=== PATIENT | male | born 1930 | race Caucasian/White ===

== ENCOUNTER 2017-11-30 10:07 | Emergency (ER) | payer OTHER, MEDICARE ==
[~2017-11-30] VITALS: Ht 182.9 cm; Wt 80.7 kg
[2017-11-30 10:07] VITALS: BP_SYST 136
--- NOTE | 2017-11-30 10:07 | NUR ---
BROUGHT BACK TO BED #7 AND TRIAGED. REPORT GIVEN TO KELLY
--- NOTE | 2017-11-30 10:34 | NUR ---
ER at bedside examining patient.
--- NOTE | 2017-11-30 10:37 | NUR ---
Pt presents to ER c/o flu like symptomsx 6 days. Pt states he has a productive cough, body aches, sore throat. Pt reports that his was admitted on saturday to [facility] for influenza. Pt denies N/V/D. Pt reports medical history of HTN, hyperlipidemia. Pt in no acute distress, AOX4, family at bedside.
[2017-11-30] MEDS ORDERED: ALBUTEROL SULFATE 0.083% 2.5 MG/3 ML VIAL.NEB INH ONE (12:00)
--- NOTE | 2017-11-30 12:00 | NUR ---
Respiratory at bedside for breathing tx. Pt tolerating well; will continue to monitor.
--- NOTE | 2017-11-30 12:17 | NUR ---
DR DESOUZA IN ROOM SPEAKING WITH PT AND PTS DAUGHTER.
[2017-11-30 12:20] VITALS: BP_SYST 128
--- NOTE | 2017-11-30 12:20 | NUR ---
Patient given written and verbal discharge instructions and verbalizes understanding. ER MD discussed with patient the results and treatment provided. Patient in stable condition. ID arm band removed. Rx of Augmentin and Promethazine with Codeine given. Patient educated on pain management and to follow up with PMD. Pain Scale 0/10. Opportunity for questions provided and answered.
== END 2017-11-30 12:20 | disposition home or self-care (01) ==
LOC: SED 10:07
DX: J40 Bronchitis, not specified as acute or chronic (principal)
CPT/HCPCS: 36415; 71010; 86710; 94640; 99285

== ENCOUNTER 2019-09-05 09:33 | Inpatient (IN) | payer OTHER, MEDICARE ==
[~2019-09-05] VITALS: Ht 182.9 cm; Wt 74.8 kg
[~2019-09-05 09:33] MED LIST: BENA20TA9 PO; DOXA4TAB2 PO; LEVO500T20 PO; METH4TAB3 PO; MONT10TA25 PO; PARO40TA80 PO; SIMV40TA2 PO
[2019-09-05 09:35] VITALS: BP_SYST 164
[2019-09-05 10:29] LABS: ANION GAP 10 (5-15); CALCIUM 8.7 mg/dL (8.4-11.0); CHLORIDE 100 mmol/L (98-107); CREATININE 1.05 mg/dL (0.55-1.30); GLUCOSE 104 mg/dL (70-99); SODIUM SERUM 134 mmol/L (136-145); UREA NITROGEN, BLOOD 19 mg/dL (8-21)
[2019-09-05 10:35] LABS: ALANINE AMINOTRANSFERASE 19 U/L (12-78); ALBUMIN 3.5 g/dL (3.4-4.8); ASPARTATE AMINOTRANSFERASE 16 U/L (10-37); TOTAL BILIRUBIN 0.5 mg/dL (0.0-1.0)
[2019-09-05] MEDS ORDERED: VIS25 PO (10:35)
[2019-09-05] MEDS ORDERED: TAMS-11 PO (10:35)
[2019-09-05] MEDS ORDERED: LOSA50TA3 PO (10:35)
[2019-09-05] MEDS ORDERED: PARO-63 PO (10:35)
[2019-09-05 10:37] LABS: BASOPHILS # (AUTO) 0.1 K/uL (0.0-0.2); EOSINOPHILS # (AUTO) 0.1 K/uL (0.0-0.4); EOSINOPHILS % (AUTO) 1.3 % (0.0-4.0); HEMOGLOBIN 14.1 g/dL (14.0-18.0); LYMPHOCYTES # (AUTO) 0.7 K/uL (1.0-5.5); LYMPHOCYTES % (AUTO) 10.1 % (20.5-51.5); MEAN CORPUSCULAR HEMOGLOBIN 33 pg (27-31); MEAN CORPUSCULAR HGB CONC 34 % (32-36); MEAN CORPUSCULAR VOLUME 96 fL (79.0-98.0); MONOCYTES # (AUTO) 0.7 K/uL (0.0-1.0); MONOCYTES % (AUTO) 9.3 % (1.7-9.3); NEUTROPHILS # (AUTO) 5.5 K/uL (1.8-7.7); NEUTROPHILS % (AUTO) 78.3 % (40.0-70.0); PLATELET COUNT (AUTO) 299 K/uL (130-430); RED BLOOD CELL COUNT(AUTO) 4.28 MIL/uL (4.2-6.2); RED CELL DISTRIBUTION WIDTH 14.3 % (9.0-15.0)
[2019-09-05 11:44] VITALS: BP_SYST 151
[2019-09-05] MEDS ORDERED: DOCU-144 PO (11:44)
[2019-09-05 14:25] LABS: FREE T4 (FREE THYROXINE) 1.1 ng/dl (0.8-1.5); THYROID STIMULATING HORMONE 1.84 uIu/mL (0.36-3.74)
[2019-09-05 16:00] VITALS: BP_SYST 145
[2019-09-05] MEDS ORDERED: HYDROcodone/ACETAMIN 5-325 MG TAB (NORCO/ VICODIN) PO PRN (17:15)
[2019-09-05] MEDS ORDERED: HYDROcodone/ACETAMIN 10-325 MG TAB PO PRN (17:15)
[2019-09-05] MEDS ORDERED: ONDANSETRON HCL 4 MG/2 ML VIAL IVP PRN (17:15)
[2019-09-05] MEDS ORDERED: ACETAMINOPHEN 325 MG TABLET PO PRN (17:15)
[2019-09-05] MEDS ORDERED: LORazepam 2 MG/ML VIAL IVP PRN (17:15)
[2019-09-05] MEDS: MONTELUKAST 10 MG TABLET PO SCH (17:33)
[2019-09-05 19:00] VITALS: BP_SYST 120
[2019-09-05 20:00] VITALS: BP_SYST 120
[2019-09-05] MEDS: DOCUSATE SODIUM 100 MG CAPSULE PO SCH (21:58)
[2019-09-05] MEDS ORDERED: NORMAL SALINE 5 ML DISP.SYRIN IVF SCH (22:00)
[2019-09-05] MEDS: NORMAL SALINE 5 ML DISP.SYRIN IVF SCH (22:00)
[2019-09-06 02:26] VITALS: BP_SYST 128
[2019-09-06] MEDS: NORMAL SALINE 5 ML DISP.SYRIN IVF SCH ×3 (06:02→20:29)
[2019-09-06 06:43] LABS: BASOPHILS # (AUTO) 0.1 K/uL (0.0-0.2); BASOPHILS % (AUTO) 1.2 % (0.0-2.0); EOSINOPHILS # (AUTO) 0.3 K/uL (0.0-0.4); EOSINOPHILS % (AUTO) 4.1 % (0.0-4.0); HEMATOCRIT 40.3 % (36-54); HEMOGLOBIN 13.7 g/dL (14.0-18.0); LYMPHOCYTES # (AUTO) 0.9 K/uL (1.0-5.5); MEAN CORPUSCULAR HEMOGLOBIN 33 pg (27-31); MEAN CORPUSCULAR HGB CONC 34 % (32-36); MEAN CORPUSCULAR VOLUME 96 fL (79.0-98.0); MONOCYTES # (AUTO) 0.7 K/uL (0.0-1.0); MONOCYTES % (AUTO) 11.6 % (1.7-9.3); NEUTROPHILS # (AUTO) 4.2 K/uL (1.8-7.7); NEUTROPHILS % (AUTO) 68.1 % (40.0-70.0); PLATELET COUNT (AUTO) 299 K/uL (130-430); RED BLOOD CELL COUNT(AUTO) 4.19 MIL/uL (4.2-6.2); RED CELL DISTRIBUTION WIDTH 13.9 % (9.0-15.0); WHITE BLOOD COUNT (AUTO) 6.2 K/uL (4.8-10.8)
[2019-09-06 07:23] LABS: ANION GAP 8 (5-15); CALCIUM 8.6 mg/dL (8.4-11.0); CHLORIDE 102 mmol/L (98-107); CREATININE 1.06 mg/dL (0.55-1.30); GLUCOSE 88 mg/dL (70-99); POTASSIUM 4.3 mmol/L (3.5-5.1); SODIUM SERUM 136 mmol/L (136-145); UREA NITROGEN, BLOOD 17 mg/dL (8-21)
[2019-09-06 07:41] VITALS: BP_SYST 159
[2019-09-06] MEDS: TAMSULOSIN HCL 0.4 MG CAP PO SCH (09:09)
[2019-09-06] MEDS: LOSARTAN POTASSIUM 50 MG TABLET (COZAAR) PO SCH (09:11)
[2019-09-06] MEDS: SIMVASTATIN 40 MG TABLET PO SCH (09:11)
[2019-09-06] MEDS ORDERED: DULoxetine HCL 30 MG CAPSULE.DR (CYMBALTA) PO ONE (11:30)
[2019-09-06 11:33] VITALS: BP_SYST 141
[2019-09-06 15:13] VITALS: BP_SYST 115
[2019-09-06 19:00] VITALS: BP_SYST 108
[2019-09-06] MEDS: DULoxetine HCL 30 MG CAPSULE.DR (CYMBALTA) PO SCH (20:26)
[2019-09-06] MEDS: DOCUSATE SODIUM 100 MG CAPSULE PO SCH (20:26)
[2019-09-07 01:22] VITALS: BP_SYST 140
[2019-09-07] MEDS: NORMAL SALINE 5 ML DISP.SYRIN IVF SCH ×3 (05:40→20:40)
[2019-09-07 07:24] LABS: BASOPHILS # (AUTO) 0.1 K/uL (0.0-0.2); BASOPHILS % (AUTO) 1.1 % (0.0-2.0); EOSINOPHILS # (AUTO) 0.3 K/uL (0.0-0.4); EOSINOPHILS % (AUTO) 3.5 % (0.0-4.0); HEMOGLOBIN 14.4 g/dL (14.0-18.0); LYMPHOCYTES # (AUTO) 0.9 K/uL (1.0-5.5); LYMPHOCYTES % (AUTO) 12.1 % (20.5-51.5); MEAN CORPUSCULAR HEMOGLOBIN 33 pg (27-31); MEAN CORPUSCULAR HGB CONC 34 % (32-36); MEAN CORPUSCULAR VOLUME 96 fL (79.0-98.0); MONOCYTES # (AUTO) 0.7 K/uL (0.0-1.0); MONOCYTES % (AUTO) 9.5 % (1.7-9.3); NEUTROPHILS # (AUTO) 5.4 K/uL (1.8-7.7); NEUTROPHILS % (AUTO) 73.8 % (40.0-70.0); PLATELET COUNT (AUTO) 299 K/uL (130-430); RED CELL DISTRIBUTION WIDTH 13.7 % (9.0-15.0); WHITE BLOOD COUNT (AUTO) 7.3 K/uL (4.8-10.8)
[2019-09-07 07:38] LABS: ALANINE AMINOTRANSFERASE 16 U/L (12-78); ALBUMIN 3.3 g/dL (3.4-4.8); ANION GAP 7 (5-15); ASPARTATE AMINOTRANSFERASE 16 U/L (10-37); CALCIUM 8.6 mg/dL (8.4-11.0); CHLORIDE 101 mmol/L (98-107); CREATININE 1.01 mg/dL (0.55-1.30); GLUCOSE 94 mg/dL (70-99); SODIUM SERUM 133 mmol/L (136-145); TOTAL BILIRUBIN 0.5 mg/dL (0.0-1.0); UREA NITROGEN, BLOOD 22 mg/dL (8-21)
[2019-09-07 08:00] VITALS: BP_SYST 162
[2019-09-07] MEDS: DULoxetine HCL 30 MG CAPSULE.DR (CYMBALTA) PO SCH ×2 (08:14→20:40)
[2019-09-07] MEDS: LOSARTAN POTASSIUM 50 MG TABLET (COZAAR) PO SCH (08:14)
[2019-09-07] MEDS: TAMSULOSIN HCL 0.4 MG CAP PO SCH (08:14)
[2019-09-07] MEDS: SIMVASTATIN 40 MG TABLET PO SCH (08:14)
[2019-09-07] MEDS ORDERED: CYM30 PO (09:20)
[2019-09-07 11:30] VITALS: BP_SYST 138
[2019-09-07 15:33] VITALS: BP_SYST 129
[2019-09-07] MEDS: MONTELUKAST 10 MG TABLET PO SCH (17:31)
[2019-09-07 19:00] VITALS: BP_SYST 107
[2019-09-07 20:00] VITALS: BP_SYST 150
[2019-09-07] MEDS: DOCUSATE SODIUM 100 MG CAPSULE PO SCH (20:39)
[2019-09-08] VITALS: BP_SYST 149
[2019-09-08] MEDS: NORMAL SALINE 5 ML DISP.SYRIN IVF SCH ×3 (05:51→20:19)
[2019-09-08 07:04] LABS: BASOPHILS # (AUTO) 0.1 K/uL (0.0-0.2); BASOPHILS % (AUTO) 0.9 % (0.0-2.0); EOSINOPHILS # (AUTO) 0.3 K/uL (0.0-0.4); EOSINOPHILS % (AUTO) 3.3 % (0.0-4.0); HEMATOCRIT 41.9 % (36-54); HEMOGLOBIN 14.5 g/dL (14.0-18.0); LYMPHOCYTES # (AUTO) 0.9 K/uL (1.0-5.5); LYMPHOCYTES % (AUTO) 11.5 % (20.5-51.5); MEAN CORPUSCULAR HEMOGLOBIN 33 pg (27-31); MEAN CORPUSCULAR HGB CONC 35 % (32-36); MEAN CORPUSCULAR VOLUME 95 fL (79.0-98.0); MONOCYTES # (AUTO) 0.8 K/uL (0.0-1.0); MONOCYTES % (AUTO) 9.7 % (1.7-9.3); NEUTROPHILS # (AUTO) 6.1 K/uL (1.8-7.7); NEUTROPHILS % (AUTO) 74.6 % (40.0-70.0); PLATELET COUNT (AUTO) 277 K/uL (130-430); RED BLOOD CELL COUNT(AUTO) 4.39 MIL/uL (4.2-6.2); WHITE BLOOD COUNT (AUTO) 8.2 K/uL (4.8-10.8)
[2019-09-08 07:51] LABS: ANION GAP 8 (5-15); CALCIUM 8.7 mg/dL (8.4-11.0); CHLORIDE 101 mmol/L (98-107); CREATININE 1.01 mg/dL (0.55-1.30); GLUCOSE 97 mg/dL (70-99); SODIUM SERUM 132 mmol/L (136-145); UREA NITROGEN, BLOOD 23 mg/dL (8-21)
[2019-09-08 08:00] VITALS: BP_SYST 138
[2019-09-08] MEDS: TAMSULOSIN HCL 0.4 MG CAP PO SCH (09:19)
[2019-09-08] MEDS: DULoxetine HCL 30 MG CAPSULE.DR (CYMBALTA) PO SCH ×2 (09:20→20:19)
[2019-09-08] MEDS: SIMVASTATIN 40 MG TABLET PO SCH (09:20)
[2019-09-08] MEDS: LOSARTAN POTASSIUM 50 MG TABLET (COZAAR) PO SCH (09:20)
[2019-09-08 11:24] VITALS: BP_SYST 118
[2019-09-08] MEDS ORDERED: PROMETHAZINE HCL 25 MG TABLET PO ONE (12:15)
[2019-09-08 15:27] VITALS: BP_SYST 119
[2019-09-08] MEDS: MONTELUKAST 10 MG TABLET PO SCH (17:49)
[2019-09-08 20:00] VITALS: BP_SYST 119
[2019-09-08] MEDS: PROMETHAZINE HCL 25 MG TABLET PO SCH (20:19)
[2019-09-08] MEDS: DOCUSATE SODIUM 100 MG CAPSULE PO SCH (20:19)
[2019-09-09 01:47] VITALS: BP_SYST 115
[2019-09-09] MEDS: NORMAL SALINE 5 ML DISP.SYRIN IVF SCH ×2 (05:12→15:08)
[2019-09-09 07:18] LABS: BASOPHILS # (AUTO) 0.1 K/uL (0.0-0.2); BASOPHILS % (AUTO) 1.3 % (0.0-2.0); EOSINOPHILS # (AUTO) 0.4 K/uL (0.0-0.4); EOSINOPHILS % (AUTO) 6.7 % (0.0-4.0); HEMATOCRIT 39.3 % (36-54); HEMOGLOBIN 13.6 g/dL (14.0-18.0); LYMPHOCYTES # (AUTO) 0.9 K/uL (1.0-5.5); LYMPHOCYTES % (AUTO) 14.1 % (20.5-51.5); MEAN CORPUSCULAR HEMOGLOBIN 33 pg (27-31); MEAN CORPUSCULAR HGB CONC 35 % (32-36); MEAN CORPUSCULAR VOLUME 95 fL (79.0-98.0); MONOCYTES # (AUTO) 0.8 K/uL (0.0-1.0); MONOCYTES % (AUTO) 11.9 % (1.7-9.3); NEUTROPHILS # (AUTO) 4.4 K/uL (1.8-7.7); PLATELET COUNT (AUTO) 267 K/uL (130-430); RED BLOOD CELL COUNT(AUTO) 4.12 MIL/uL (4.2-6.2); RED CELL DISTRIBUTION WIDTH 13.6 % (9.0-15.0); WHITE BLOOD COUNT (AUTO) 6.7 K/uL (4.8-10.8)
[2019-09-09 07:44] LABS: ANION GAP 7 (5-15); CALCIUM 8.5 mg/dL (8.4-11.0); CHLORIDE 100 mmol/L (98-107); CREATININE 0.98 mg/dL (0.55-1.30); GLUCOSE 92 mg/dL (70-99); POTASSIUM 3.9 mmol/L (3.5-5.1); SODIUM SERUM 131 mmol/L (136-145); UREA NITROGEN, BLOOD 21 mg/dL (8-21)
[2019-09-09 08:00] VITALS: BP_SYST 117
[2019-09-09] MEDS: DULoxetine HCL 30 MG CAPSULE.DR (CYMBALTA) PO SCH (09:38)
[2019-09-09] MEDS: LOSARTAN POTASSIUM 50 MG TABLET (COZAAR) PO SCH (09:38)
[2019-09-09] MEDS: TAMSULOSIN HCL 0.4 MG CAP PO SCH (09:39)
[2019-09-09] MEDS: SIMVASTATIN 40 MG TABLET PO SCH (09:39)
[2019-09-09] MEDS: PROMETHAZINE HCL 25 MG TABLET PO SCH ×2 (09:39→15:09)
[2019-09-09 11:25] VITALS: BP_SYST 146
[2019-09-09 15:25] VITALS: BP_SYST 123
[2019-09-09 15:47] VITALS: BP_SYST 123
== END 2019-09-09 17:05 | DRG 897 ==
LOC: SED 09:33 → SMU 11:07
PROVIDERS: ADMIT Preventive Medicine Preventive Medicine/Occupational Environmental Medicine; ATTEND Preventive Medicine Preventive Medicine/Occupational Environmental Medicine
DX: F13.239 Sedative, hypnotic or anxiolytic dependence with withdrawal, unspecified (principal); E87.1 Hypo-osmolality and hyponatremia; E44.0 Moderate protein-calorie malnutrition; F32.9 Major depressive disorder, single episode, unspecified; F41.1 Generalized anxiety disorder; E78.00 Pure hypercholesterolemia, unspecified; G20 Parkinson's disease; T43.225A Adverse effect of selective serotonin reuptake inhibitors, initial encounter; I10 Essential (primary) hypertension; G25.71 Drug induced akathisia; R79.89 Other specified abnormal findings of blood chemistry; N40.0 Benign prostatic hyperplasia without lower urinary tract symptoms; Z96.1 Presence of intraocular lens; Z98.41 Cataract extraction status, right eye; Z98.42 Cataract extraction status, left eye; Z79.899 Other long term (current) drug therapy; Z68.22 Body mass index [BMI] 22.0-22.9, adult; Y92.89 Other specified places as the place of occurrence of the external cause
CPT/HCPCS: 36415; 70450-TC; 80048; 80053; 82607; 84439; 84443-TC; 85025; 93005; 99285; J2060; Q0169